=== PATIENT | male | born 1955 | race Caucasian/White ===

== ENCOUNTER 2024-03-19 04:08 | Emergency (ER) | payer MEDICARE ==
[2024-03-19] MEDS ORDERED: Furosemide 40 MG (4 mL) VIAL ONE (04:49)
[2024-03-19 04:53] LABS: Band 2 % (5-11); Hematocrit 22.8 % (42.0-52.0); Hemoglobin 6.7 g/dL (14.0-18.0); Hypochromia SLIGHT = 6-15 cells (100X) (0-5/hpf); Lymphocytes 9 % (21-51); MDiff Complete? YES; Mean Corpuscular HGB CONC 29.6 g/dL (32.0-36.0); Mean Corpuscular Hemoglobin 22.9 pg (27.0-31.0); Mean Corpuscular Volume 77.5 fl (78.0-98.0); Mean Platelet Volume 7.5 fL (7.4-10.4); Monocytes 3 % (0-10); Neutrophil 86 % (42-75); Platelet Count 415 10x3/uL (130-400); RBC Distribution Width 17.8 % (11.5-14.5); Red Blood Cell (RBC) Count 2.94 mill/uL (4.70-6.10); White Blood Cell (WBC) Count 13.5 10x3/uL (4.8-10.8)
[2024-03-19 04:56] LABS: ALT (SGPT) 39 U/L (8-55); AST (SGOT) 80 U/L (5-34); Albumin 3.2 g/dL (3.4-4.8); Alkaline Phosphatase 84 U/L (40-110); Anion Gap 23 mmol/L (10-20); BUN (Urea Nitrogen) 21 mg/dL (8.4-25.7); Bilirubin, Total 0.2 mg/dL (0.2-1.2); Calc. Creatinine Clearance 0 mL/min (70-130); Calcium 8.5 mg/dL (7.8-10.44); Carbon Dioxide 15 mmol/L (23-31); Chloride 103 mmol/L (98-107); Estimated GFR 49; Globulin 3.2 g/dL (2.4-3.5); Glucose 264 mg/dL (80-115); Potassium 4.3 mmol/L (3.5-5.1); Protein, Total 6.4 g/dL (5.8-8.1); Sodium 137 mmol/L (136-145)
[2024-03-19 04:57] LABS: Troponin I 0.168 ng/mL (< 0.028)
[2024-03-19 04:58] LABS: Critical Call Chem Troponin I NUR.AID@0456
[2024-03-19 05:03] LABS: Critical Call w/ Read Back NUR.AID@0500
== END 2024-03-19 14:07 | disposition short-term general hospital (02) ==
LOC: MADERS 04:08
DX: I11.0 Hypertensive heart disease with heart failure (principal); I50.9 Heart failure, unspecified; D64.9 Anemia, unspecified; E11.9 Type 2 diabetes mellitus without complications; F17.210 Nicotine dependence, cigarettes, uncomplicated; Z79.82 Long term (current) use of aspirin
CPT/HCPCS: 71045; 80053; 83880; 84484; 85025; 93005; 94760; 96374; 99285; J1940; 36415